=== PATIENT | female | born 1960 | race Caucasian/White ===

== ENCOUNTER 2020-07-08 16:45 | Outpatient (REF) | payer OTHER, SELFPAY | END 2020-07-08 16:46 | disposition home or self-care (01) | LOC: HO.LAB 16:45 | PROVIDERS: Visit Provider Internal Medicine | DX: Z20.828 Contact with and (suspected) exposure to other viral communicable diseases (principal) | CPT/HCPCS: C9803; U0003 ==

== ENCOUNTER → 2021-01-17 08:19 | Outpatient (BNVA) | payer OTHER, SELFPAY | PROVIDERS: PCP Nurse Practitioner Family; Visit Provider Physician Assistant ==

== ENCOUNTER 2021-02-11 08:39 | Outpatient (REF) | payer OTHER, SELFPAY ==
--- NOTE | ~2021-02-11 | XR_ITS ---
EXAMINATION: XR CHEST CLINICAL INFORMATION: Obesity COMPARISON: Previous chest x-ray January 2009 TECHNIQUE: 2 views of the chest were obtained. FINDINGS: The cardiac and mediastinal contours are normal. There is linear scarring or subsegmental atelectasis at the lung bases. The lungs are otherwise clear. There is no pleural effusion or pneumothorax. There are degenerative changes of the spine. XR/XR chest 2V IMPRESSION: Linear scarring or subsegmental atelectasis at the lung bases. Otherwise unremarkable exam.
--- NOTE | 2021-02-11 08:48 | ECG_ITS ---
Test Reason : MORBID OBESITY Blood Pressure : / mmHG Vent. Rate : 093 BPM Atrial Rate : 093 BPM P-R Int : 192 ms QRS Dur : 118 ms QT Int : 392 ms P-R-T Axes : 080 070 032 degrees QTc Int : 487 ms Normal sinus rhythm Non-specific intra-ventricular conduction delay Prolonged QT Abnormal ECG When compared with ECG of 22-FEB-2009 06:45, No significant changes seen Referred By: Enedelia Kelly Electronically Signed By:JANIE GAYTAN
[2021-02-11 09:14] LABS: MANUAL DIFF FLAG NO
[2021-02-11 09:20] LABS: Basophils Percent Auto 0.6 % (0-2); Eosinophils Absolute Auto 0.2 X10*3/uL (0.0-0.4); Eosinophils Percent Auto 2.9 % (0-4); Hematocrit 41.5 % (37-47); Hemoglobin 13.8 g/dl (12.0-16.0); Imm Gran Abs Auto 0.05 X10*3/uL (0.00-0.03); Imm Gran Pct Auto 0.7 % (0.0-0.4); Lymphocytes Absolute Auto 1.6 X10*3/uL (1.2-4.9); Lymphocytes Percent Auto 22.9 % (20-40); Mean Corpuscular HGB Conc 33.3 g/dl (31.0-35.0); Mean Corpuscular Volume 93.3 fL (80-98); Mean Platelet Volume 11.2 fL (9.4-12.3); Monocytes Absolute Auto 0.6 X10*3/uL (0.1-1.2); Monocytes Percent Auto 8.6 % (2-11); Neutrophils Absolute Auto 4.5 X10*3/uL (2.0-8.3); Neutrophils Percent Auto 64.3 % (45-73); Platelet Count 240 X10*3/uL (160-400); Red Blood Count 4.45 X10*6/uL (4.20-5.50); Red Cell Distribution Width 12.3 % (11.0-16.0)
[2021-02-11 09:30] LABS: Estimated Average Glucose 128 mg/dL; Hemoglobin A1c % 6.1 %
[2021-02-11 09:54] LABS: Alanine Aminotransferase 22 U/L (0-31); Albumin Level 4.3 g/dL (3.5-5.0); Alkaline Phosphatase 108 U/L (39-117); Anion Gap 12 (12-20); Aspartate Amino Transferase 17 U/L (5-31); Bilirubin Total 0.3 mg/dL (0.0-1.0); Blood Urea Nitrogen 11 mg/dL (9-16); C Reactive Protein 0.66 mg/dL (< or = 0.50); Calcium 10.2 mg/dL (8.4-10.2); Carbon Dioxide 26 mmol/L (22-29); Chloride 104 mmol/L (96-108); Cholesterol 188 mg/dL; Estimated Glomerular Filt Rate > 60; Glucose Fasting 123 mg/dL (60-99); HDL Cholesterol 66 mg/dL; Iron 84 mcg/dL (30-160); LDL Cholesterol Calculated 90 mg/dl; Percent Iron Saturation 26 % (15-50); Potassium 4.4 mmol/L (3.3-5.1); Sodium 138 mmol/L (135-145); Total Iron Binding Capacity 320 mcg/dL (228-428); Total Protein 7.1 g/dL (6.5-8.0); Triglycerides 162 mg/dL; Unsaturated Iron Binding 236 ug/dL
[2021-02-11 10:01] LABS: Ferritin 60 ng/mL (10-250); TSH reflex Free T4 0.99 uIU/mL (0.32-4.0); Vitamin D 25-OH Total 36.9 ng/mL (>30)
[2021-02-11 10:13] LABS: Folate 17.2 ng/mL (> or = 4.0); Vitamin B12 412 pg/mL (200-900)
[2021-02-12 09:37] LABS: Insulin Level Total 25.6 uIU/mL
[2021-02-14 21:37] LABS: Zinc 81 mcg/dL (60-130)
[2021-02-15 10:02] LABS: Calcium (PTHI) 10.2 mg/dL (8.6-10.4); PTHI 137 pg/mL (14-64)
[2021-02-16 01:27] LABS: Vitamin A 69 mcg/dL (38-98)
[2021-02-17 06:37] LABS: Vitamin B1 10 nmol/L (8-30)
== END 2021-02-11 08:40 | disposition home or self-care (01) ==
LOC: HO.LAB 08:39
PROVIDERS: PCP Nurse Practitioner Family; Visit Provider Physician Assistant
DX: E66.01 Morbid (severe) obesity due to excess calories (principal); Z68.41 Body mass index [BMI] 40.0-44.9, adult; R06.02 Shortness of breath
CPT/HCPCS: 36415; 71046; 80053; 80061; 82306; 82607; 82728; 82746; 83036; 83525; 83540; 83970; 84425; 84443; 84590; 84630; 85025; 86140; 93005

== ENCOUNTER → 2021-02-15 08:27 | Outpatient (BNVA) | payer OTHER, SELFPAY | PROVIDERS: PCP Nurse Practitioner Family; Visit Provider Physician Assistant ==

== ENCOUNTER 2021-03-09 08:55 | Outpatient (REF) | payer OTHER, SELFPAY ==
[2021-03-10 14:31] LABS: H Pylori Breath Test NOT DETECTED (NOT DETECTED)
== END 2021-03-09 08:56 | disposition home or self-care (01) ==
LOC: HO.LNP 08:55
PROVIDERS: Physician Assistant; PCP Nurse Practitioner Family; Visit Provider Physician Assistant
DX: E66.01 Morbid (severe) obesity due to excess calories (principal); Z68.41 Body mass index [BMI] 40.0-44.9, adult; R06.02 Shortness of breath
CPT/HCPCS: 83013

== ENCOUNTER → 2021-03-17 08:53 | Outpatient (BNVA) | payer OTHER, SELFPAY | PROVIDERS: PCP Nurse Practitioner Family; Visit Provider Surgery ==

== ENCOUNTER → 2021-03-23 09:55 | Outpatient (BNVA) | payer OTHER, SELFPAY | PROVIDERS: PCP Nurse Practitioner Family; Visit Provider Internal Medicine Cardiovascular Disease ==

== ENCOUNTER → 2021-03-25 07:39 | Outpatient (REF) | payer OTHER, SELFPAY ==
--- NOTE | 2021-03-25 07:43 | CA_ITS ---
Acquisition Time: 2021-03-25 07:44:51 Total Exercise Time: 00:05:00 Test Indications: Abnormal ECG Medications: METOPROLOL BUPROPION LEVOTHYROXINE OMEPRAZOLE PRAVASTATIN TRAZADONE Protocol: JOSEFINA Max HR: 148 BPM 93% of Pred: 159 BPM Max BP: 154/080 mmHG Max Work Load: 7.0 METS Exercise stress test with exercise 5 min of Josefina protocol, with moderate shortness of breath, 1/10 pressure below left breath, with isolated PVC, without EKG changes meeting criteria for ischemia. In recovery he breathing improved to normal and chest discomfort resolved. Test reviewed with Dr Elizabeth. Will order a nuclear stress test for further evaluation. Referred By: Jabier Centeno Overread By: ROLANDO HAN
== END ==
LOC: HO.CARD 07:39
PROVIDERS: Visit Provider Internal Medicine Cardiovascular Disease
DX: R94.31 Abnormal electrocardiogram [ECG] [EKG] (principal)
CPT/HCPCS: 93017

== ENCOUNTER → 2021-04-01 13:09 | Outpatient (BNVA) | payer OTHER, SELFPAY | PROVIDERS: PCP Nurse Practitioner Family; Visit Provider Surgery ==

== ENCOUNTER → 2021-04-14 08:08 | Outpatient (BNVA) | payer OTHER, SELFPAY | PROVIDERS: PCP Nurse Practitioner Family; Visit Provider Dietitian, Registered | DX: E66.01 Morbid (severe) obesity due to excess calories (principal) | CPT/HCPCS: 97802 ==